=== PATIENT | female | born 1960 | race Caucasian/White ===

== ENCOUNTER → 2016-10-22 | Outpatient (CLI) | payer OTHER ==
[~2016-10-22] MED LIST: ADVAI100I PO; COZA50TA PO; CYCL-36 PO; Z.0.BCPILL PO
[2016-10-22 09:03] LABS: MEAN CELL VOLUME 87.4 FL (80.0-100.0); MEAN CORPUSCULAR HEMOGLOBIN 28.5 PG (27.0-34.0); MEAN CORPUSCULAR HGB CONC 32.6 % (32.0-36.0); PLATELET COUNT 172 TH/MM3 (150-450); RED BLOOD COUNT 4.92 MIL/MM3 (4.00-5.30); RED CELL DISTRIBUTION WIDTH 13.8 % (11.6-17.2); REVIEW FLAG FINAL; WHITE BLOOD COUNT 5.5 TH/MM3 (4.0-11.0)
[2016-10-22 09:40] LABS: ALKALINE PHOSPHATASE 83 U/L (45-117); ALT (GPT) 35 U/L (10-53); ANION GAP 10 MEQ/L (5-15); AST (GOT) 28 U/L (15-37); BICARBONATE 26.2 MEQ/L (21.0-32.0); BLOOD UREA NITROGEN 16 MG/DL (7-18); CHLORIDE 106 MEQ/L (98-107); FREE T4 1.12 NG/DL (0.76-1.46); GLOMERULAR FILTRATION RATE 78 ML/MIN (>89); GLUCOSE,FASTING 94 MG/DL (74-99); HDL CHOLESTEROL 52.1 MG/DL (40.0-60.0); LDL CHOLESTEROL 176 MG/DL (0-99); POTASSIUM 4.5 MEQ/L (3.5-5.1); SODIUM (NA) 142 MEQ/L (136-145); TOTAL BILIRUBIN ADULT 0.4 MG/DL (0.2-1.0)
== END ==
LOC: CLAB 08:42
PROVIDERS: ATTEND Family Medicine
DX: I10 Essential (primary) hypertension (principal); J45.909 Unspecified asthma, uncomplicated; I49.3 Ventricular premature depolarization; J33.9 Nasal polyp, unspecified
CPT/HCPCS: 36415; 80053; 80061; 84439; 84443; 85027

== ENCOUNTER → 2017-01-17 | Outpatient (CLI) | payer OTHER ==
[2017-01-17 08:59] LABS: INDIRECT BILIRUBIN 0.3 MG/DL (0.0-0.8); TOTAL BILIRUBIN ADULT 0.5 MG/DL (0.2-1.0)
== END ==
LOC: CLAB 08:14
PROVIDERS: ATTEND Family Medicine
DX: E78.2 Mixed hyperlipidemia (principal)
CPT/HCPCS: 36415; 80061; 80076

== ENCOUNTER → 2017-04-20 | Outpatient (CLI) | payer OTHER ==
[2017-04-20 09:50] LABS: HEMATOCRIT 40.5 % (35.0-46.0); MEAN CELL VOLUME 86.5 FL (80.0-100.0); MEAN CORPUSCULAR HEMOGLOBIN 28.6 PG (27.0-34.0); PLATELET COUNT 167 TH/MM3 (150-450); RED BLOOD COUNT 4.68 MIL/MM3 (4.00-5.30); RED CELL DISTRIBUTION WIDTH 14.5 % (11.6-17.2); REVIEW FLAG FINAL
[2017-04-20 10:13] LABS: ANION GAP 9 MEQ/L (5-15); AST (GOT) 29 U/L (15-37); BICARBONATE 23.8 MEQ/L (21.0-32.0); BLOOD UREA NITROGEN 19 MG/DL (7-18); CHLORIDE 105 MEQ/L (98-107); GLOMERULAR FILTRATION RATE 66 ML/MIN (>89); GLUCOSE,FASTING 101 MG/DL (74-99); POTASSIUM 4.1 MEQ/L (3.5-5.1); SODIUM (NA) 138 MEQ/L (136-145)
[2017-04-20 10:14] LABS: ALT (GPT) 32 U/L (10-53)
[2017-04-20 10:24] LABS: ALKALINE PHOSPHATASE 77 U/L (45-117); HDL CHOLESTEROL 59.8 MG/DL (40.0-60.0); LDL CHOLESTEROL 110 MG/DL (0-99); TOTAL BILIRUBIN ADULT 0.5 MG/DL (0.2-1.0)
== END ==
LOC: CLAB 09:13
PROVIDERS: ATTEND Family Medicine
DX: I10 Essential (primary) hypertension (principal); J45.909 Unspecified asthma, uncomplicated; J33.9 Nasal polyp, unspecified; I49.3 Ventricular premature depolarization
CPT/HCPCS: 36415; 80053; 80061; 84443; 85027

== ENCOUNTER → 2017-09-20 | Outpatient (CLI) | payer OTHER ==
[2017-09-20 09:35] LABS: HEMATOCRIT 38.9 % (35.0-46.0); HEMOGLOBIN 13.2 GM/DL (11.6-15.3); MEAN CELL VOLUME 84.5 FL (80.0-100.0); MEAN CORPUSCULAR HEMOGLOBIN 28.6 PG (27.0-34.0); MEAN CORPUSCULAR HGB CONC 33.8 % (32.0-36.0); MEAN PLATELET VOLUME 7.2 FL (7.0-11.0); PLATELET COUNT 157 TH/MM3 (150-450); RED CELL DISTRIBUTION WIDTH 14.5 % (11.6-17.2)
[2017-09-20 10:00] LABS: ALBUMIN 3.8 GM/DL (3.4-5.0); AST (GOT) 27 U/L (15-37); BICARBONATE 26.9 MEQ/L (21.0-32.0); BLOOD UREA NITROGEN 19 MG/DL (7-18); CALCIUM 9.1 MG/DL (8.5-10.1); CHLORIDE 109 MEQ/L (98-107); CREATININE 0.77 MG/DL (0.50-1.00); GLOMERULAR FILTRATION RATE 78 ML/MIN (>89); GLUCOSE,FASTING 89 MG/DL (74-99); SODIUM (NA) 142 MEQ/L (136-145)
[2017-09-20 10:11] LABS: ALKALINE PHOSPHATASE 86 U/L (45-117); ALT (GPT) 29 U/L (10-53); CHOLESTEROL 178 MG/DL (120-200); CHOLESTEROL/ HDL RATIO 3.11 RATIO; HDL CHOLESTEROL 57.1 MG/DL (40.0-60.0); LDL CHOLESTEROL 110 MG/DL (0-99); TOTAL BILIRUBIN ADULT 0.4 MG/DL (0.2-1.0); TOTAL PROTEIN 7.5 GM/DL (6.4-8.2); TRIGLYCERIDES 57 MG/DL (42-150)
== END ==
LOC: CLAB 09:04
PROVIDERS: ATTEND Family Medicine
DX: J45.909 Unspecified asthma, uncomplicated (principal); I10 Essential (primary) hypertension; J33.9 Nasal polyp, unspecified; I49.3 Ventricular premature depolarization; E78.2 Mixed hyperlipidemia
CPT/HCPCS: 36415; 80053; 80061; 84443; 85027